=== PATIENT | male | born 1995 | race Caucasian/White ===

== ENCOUNTER → 2017-02-02 | Outpatient (CLI) | payer BC, OTHER ==
--- NOTE | 2017-02-02 13:05 | DIAGNOSTIC IMAGING REPORT ---
RIGHT KNEE 4 OR MORE CLINICAL HISTORY: Right knee pain COMPARISON: None. DISCUSSION: No fractures or dislocations are visualized. There are no erosive or destructive changes. IMPRESSION: Unremarkable conventional radiographic evaluation of the right knee. Electronically signed by: Oj Eaton M.D. 02/02/2017 1:03 PM Dictated Date/Time: 02/02/2017 1:02 PM
== END | disposition home or self-care (01) ==
LOC: C.RDSM 12:48
PROVIDERS: ATTEND Internal Medicine
DX: M25.561 Pain in right knee (principal)

== ENCOUNTER → 2017-02-04 | Outpatient (CLI) | payer BC, OTHER ==
--- NOTE | 2017-02-04 08:37 | DIAGNOSTIC IMAGING REPORT ---
MRI OF THE RIGHT KNEE CLINICAL HISTORY: Right knee pain. Muscle strain. COMPARISON STUDY: Radiograph of the right knee dated 02/02/2017. TECHNIQUE: MRI of the right knee was performed utilizing proton density, T1, and T2-weighted sequences in the axial, sagittal, coronal planes. IV contrast was not administered for this examination. FINDINGS: Menisci: There is an oblique tear involving the body and posterior horn of the medial meniscus. The lateral meniscus is Intact. Ligaments: The anterior and posterior cruciate ligaments are intact. The medial and lateral collateral ligaments are within normal limits. Extensor mechanism: There is very mild intrasubstance tearing seen involving the medial aspect of the distal quadriceps tendon just above the insertion, best seen on axial image #11. The extensor mechanism is otherwise intact. Hoffa's fat pad is normal in appearance. There is nonspecific edema identified within the suprapatellar fat pad. Articular cartilage and bone: The articular cartilage is intact and well maintained all 3 compartments. There is marrow edema identified involving the inferior pole of the patella. No definite fracture is seen. Normal marrow signal is otherwise preserved throughout the visualized bony structures. Joint effusion: None Soft tissues: The musculature surrounding the knee joint is normal in bulk and signal intensity. IMPRESSION: 1. There is marrow edema identified involving the inferior pole of the patella suggesting contusion. There is no MRI evidence of fracture. 2. There is an oblique tear involving the body and posterior horn of the medial meniscus. 3. Suspect mild intrasubstance tearing involving the medial aspect of the distal quadriceps tendon. 4. There is nonspecific edema identified within the suprapatellar fat pad. This could be related to the mild quadriceps tendon tear discussed above or could be seen with the quadriceps fat pad impingement syndrome. Clinical correlation will be required. Electronically signed by: Evan Pinto M.D. 02/04/2017 8:36 AM Dictated Date/Time: 02/04/2017 8:26 AM
== END | disposition home or self-care (01) ==
PROVIDERS: ATTEND Internal Medicine
DX: S76.111A Strain of right quadriceps muscle, fascia and tendon, initial encounter (principal); X58.XXXA Exposure to other specified factors, initial encounter

== ENCOUNTER → 2017-02-09 | Outpatient (CLI) | payer BC, OTHER ==
--- NOTE | 2017-02-09 16:55 | DIAGNOSTIC IMAGING REPORT ---
TWO VIEW CHEST CLINICAL HISTORY: Cough. FINDINGS: PA and lateral chest radiographs are obtained. No prior studies are available for comparison at the time of dictation. The cardiomediastinal silhouette is unremarkable. The lungs and pleural spaces are clear. There is no pneumothorax. The bony thorax appears intact. IMPRESSION: No active disease in the chest. Electronically signed by: Evan Pinto M.D. 02/09/2017 4:54 PM Dictated Date/Time: 02/09/2017 4:54 PM
== END | disposition home or self-care (01) ==
LOC: C.RDSM 16:27
PROVIDERS: ATTEND Internal Medicine
DX: R05 Cough (principal)

== ENCOUNTER → 2018-02-10 | Outpatient (CLI) | payer BC, OTHER ==
--- NOTE | 2018-02-10 16:58 | DIAGNOSTIC IMAGING REPORT ---
R SHOULDER MIN 2 VIEWS CLINICAL HISTORY: 22 years-old Male presenting with RIGHT SHOULDER PAIN. TECHNIQUE: Neutral frontal, transscapular Y, and axillary views of the right shoulder were obtained. COMPARISON: Comparison made to chest x-ray from the previous day. FINDINGS: Glenohumeral and acromioclavicular joints congruent. No subluxation or deformity of the humeral head. Normal configuration of the acromion. No acute fracture or malalignment. No advanced degenerative change. No radiographic soft tissue abnormality. IMPRESSION: No acute osseous injury. Electronically signed by: Brian Ulrich M.D. 02/10/2018 4:57 PM Dictated Date/Time: 02/10/2018 4:56 PM
== END | disposition home or self-care (01) ==
LOC: C.RDSM 16:15
PROVIDERS: ATTEND Internal Medicine
DX: M25.511 Pain in right shoulder (principal)

== ENCOUNTER → 2018-02-11 | Outpatient (CLI) | payer BC, OTHER ==
--- NOTE | 2018-02-11 12:06 | DIAGNOSTIC IMAGING REPORT ---
R UPPER EXT JOINT WITHOUT CLINICAL HISTORY: RT SHOULDER PAIN, R/O STRESS FX TECHNIQUE: MRI multi axial acquisition COMPARISON STUDY: None FINDINGS: Signal characteristics the osseous structures are unremarkable. Immediately superior to the acromion is what appears be a small partial tear of the outer margin of the deltoid. The rotator cuff is intact. There are findings of mild supraspinatus tendinopathy. Glenoid labrum shows no significant disruption. Biceps tendon is intact within the bicipital groove. There are findings of mild subscapularis tendinopathy. Infraspinatus is unremarkable. IMPRESSION: 1. Small superficial partial tear of the superior aspect of the deltoid immediately superior to the acromion. 2. Mild supraspinatus and subscapularis tendinopathy. 3. No evidence for rotator cuff tear. 4. No acute bony abnormality. The above report was generated using voice recognition software. It may contain grammatical, syntax or spelling errors. Electronically signed by: Ozzy Son M.D. 02/11/2018 12:05 PM Dictated Date/Time: 02/11/2018 12:00 PM
== END | disposition home or self-care (01) ==
LOC: C.MRI 11:00
PROVIDERS: ATTEND Internal Medicine
DX: M25.511 Pain in right shoulder (principal)